=== PATIENT | male | born 1985 | race Two or more races ===

== ENCOUNTER 2025-02-10 21:50 | Emergency (ER) | payer SELFPAY ==
[~2025-02-10] VITALS: Ht 175.3 cm; Wt 88.0 kg
[2025-02-10 22:13] VITALS: BP 130/80; PULSE 76; RESP 16; TEMP 98.2; O2SAT 100
== END 2025-02-11 03:10 | disposition short-term general hospital (02) ==
LOC: EDBD → EMS 21:51
DX: F29 Unspecified psychosis not due to a substance or known physiological condition (principal)
CPT/HCPCS: 99285; Z7502